=== PATIENT | female | born 1980 | race Caucasian/White ===

== ENCOUNTER 2017-04-03 23:44 | Inpatient (IN) | payer MEDICAID ==
[~2017-04-03] VITALS: Ht 157.5 cm; Wt 60.0 kg
[~2017-04-03 23:44] MED LIST: APAP/HYDROCODON1 T13 PO; LEVSIN0.125 MG PO; TOP100 PO; TOPAMAX200 MG PO
[2017-04-04 02:06] LABS: BASOPHIL % 1.9 % (0-2); PLATELET COUNT 264 x10^3mcL (130-400)
[2017-04-04 02:08] LABS: RED CELL DISTRIBUTION WIDTH 17.5 % (11.5-14.5)
[2017-04-04 02:48] LABS: CALCIUM 8.4 mg/dL (8.5-10.1); CARBON DIOXIDE 20.4 mmol/L (21-32); CHLORIDE SERUM 107 mmol/L (98-107); CREATININE SERUM 0.7 mg/dL (0.6-1.0); GFR1 > 60 mL/min; GLUCOSE SERUM 100 mg/dL (74-106); POTASSIUM SERUM 3.2 mmol/L (3.5-5.1); SODIUM SERUM 136 mmol/L (136-145)
[2017-04-04 02:52] LABS: ALKALINE PHOSPHATASE 58 U/L (46-116); ALT/SGPT 15 U/L (14-59); AST/SGOT 13 U/L (15-37); BILIRUBIN TOTAL 0.2 mg/dL (0.20-1.00); LIPASE 401 IU/L (73-393); TOTAL PROTEIN, SERUM 7.8 g/dL (6.4-8.2)
[2017-04-04] MEDS ORDERED: NATURAL IRON65 MG PO (03:59)
[2017-04-04 04:55] VITALS: BP 92/50
[2017-04-04 05:10] LABS: microscopic required? YES; urine erythrocyte TRACE (NEGATIVE)
[2017-04-04 05:32] VITALS: BP 89/53
[2017-04-04 05:40] LABS: AMPHETAMINE QUAL UR NONE DETECTED (NEG <=1000)
[2017-04-04 06:35] LABS: T3 TOTAL 1.08 ng/mL
[2017-04-04 06:56] LABS: FREE T4 1.22 ng/dL (0.76-1.46); FREE THYROXINE INDEX 2.9 ug/dL (1.4-4.5); T4(THYROXINE) 9.1 ug/dL (4.7-13.3)
[2017-04-04 07:33] LABS: MAGNESIUM 2.4 mg/dL (1.8-2.4)
[2017-04-04 07:43] LABS: PHOSPHOROUS 4.2 mg/dL (2.5-4.9)
[2017-04-04 11:28] VITALS: BP 104/59
[2017-04-04 14:55] VITALS: BP 95/61
[2017-04-04 21:02] VITALS: BP 90/54
[2017-04-05 05:17] VITALS: BP 105/52
[2017-04-05 05:36] LABS: BASOPHIL % 0.5 % (0-2); PLATELET COUNT 191 x10^3mcL (130-400)
[2017-04-05 05:47] LABS: CALCIUM 7.8 mg/dL (8.5-10.1); CARBON DIOXIDE 18.9 mmol/L (21-32); CHLORIDE SERUM 112 mmol/L (98-107); CREATININE SERUM 0.6 mg/dL (0.6-1.0); GFR1 > 60 mL/min; GLUCOSE SERUM 60 mg/dL (74-106); POTASSIUM SERUM 3.4 mmol/L (3.5-5.1); SODIUM SERUM 141 mmol/L (136-145)
[2017-04-05 06:47] LABS: RED CELL DISTRIBUTION WIDTH 18.5 % (11.5-14.5)
[2017-04-05 09:42] VITALS: BP 102/55
[2017-04-05 13:09] VITALS: BP 98/53
[2017-04-05 16:54] VITALS: BP 100/56
[2017-04-05 19:35] VITALS: BP 97/50
[2017-04-06 06:07] LABS: BASOPHIL % 0.4 % (0-2); PLATELET COUNT 216 x10^3mcL (130-400)
[2017-04-06 06:13] LABS: RED CELL DISTRIBUTION WIDTH 18.8 % (11.5-14.5)
[2017-04-06 06:21] LABS: CALCIUM 7.6 mg/dL (8.5-10.1); CARBON DIOXIDE 14.5 mmol/L (21-32); CHLORIDE SERUM 105 mmol/L (98-107); CREATININE SERUM 0.7 mg/dL (0.6-1.0); GFR1 > 60 mL/min; POTASSIUM SERUM 3.8 mmol/L (3.5-5.1); SODIUM SERUM 134 mmol/L (136-145)
[2017-04-06 06:57] LABS: GLUCOSE SERUM 45 mg/dL (74-106)
[2017-04-06 09:27] VITALS: BP 102/53
[2017-04-06 17:30] VITALS: BP 94/60
[2017-04-06 22:03] VITALS: BP 107/61
[2017-04-07 06:06] VITALS: BP 100/63
[2017-04-07 06:15] LABS: CALCIUM 6.7 mg/dL (8.5-10.1); CHLORIDE SERUM 111 mmol/L (98-107); CREATININE SERUM 0.6 mg/dL (0.6-1.0); GFR1 > 60 mL/min; GLUCOSE SERUM 334 mg/dL (74-106); MAGNESIUM 1.8 mg/dL (1.8-2.4); PHOSPHOROUS 2.1 mg/dL (2.5-4.9); POTASSIUM SERUM 3.1 mmol/L (3.5-5.1); SODIUM SERUM 141 mmol/L (136-145)
[2017-04-07 07:11] LABS: BASOPHIL % 0.7 % (0-2); PLATELET COUNT 163 x10^3mcL (130-400)
[2017-04-07 07:12] LABS: RED CELL DISTRIBUTION WIDTH 19.3 % (11.5-14.5)
[2017-04-07 09:38] VITALS: BP 100/62
[2017-04-07] MEDS ORDERED: LEVSIN0.125 M1 (13:51)
[2017-04-07] MEDS ORDERED: TOPAMAX100 MG PO (16:26)
[2017-04-07 17:21] VITALS: BP 112/51
== END 2017-04-07 18:45 | disposition home or self-care (01) ==
LOC: ED 23:44 → MU 04-04 03:54 → DU 04-04 03:54 → MU 04-04 03:54 → DU 04-04 04:31 → MU 04-05 07:57
PROVIDERS: Emergency Medicine; Family Medicine; ADMIT Family Medicine
DX: K83.4 Spasm of sphincter of Oddi (principal); N17.0 Acute kidney failure with tubular necrosis; E87.6 Hypokalemia; E83.51 Hypocalcemia; G40.909 Epilepsy, unspecified, not intractable, without status epilepticus; D64.9 Anemia, unspecified; Z68.24 Body mass index [BMI] 24.0-24.9, adult
CPT/HCPCS: 82962; 83880; 84439; J0500; J1170; J1885; J2270; J2405; J3480; J3490; J7030; J7042; Q0092

== ENCOUNTER 2017-08-05 12:47 | Emergency (ER) | payer MEDICAID ==
[~2017-08-05] VITALS: Ht 157.5 cm; Wt 61.2 kg
[~2017-08-05 12:47] MED LIST changes: +LEVSIN0.125 M1; +NATURAL IRON65 MG PO; +TOPAMAX100 MG PO
[2017-08-05 12:54] VITALS: Ht 157.5 cm; Wt 61.2 kg
[2017-08-05 17:02] LABS: BASOPHIL % 0.4 % (0-2); PLATELET COUNT 253 x10^3mcL (130-400); RED CELL DISTRIBUTION WIDTH 12.3 % (11.5-14.5)
[2017-08-05 17:11] LABS: CALCIUM 8.3 mg/dL (8.5-10.1); CARBON DIOXIDE 19.2 mmol/L (21-32); CHLORIDE SERUM 107 mmol/L (98-107); CREATININE SERUM 0.5 mg/dL (0.6-1.0); GFR1 > 60 mL/min; GLUCOSE SERUM 87 mg/dL (74-106); POTASSIUM SERUM 3.2 mmol/L (3.5-5.1); SODIUM SERUM 140 mmol/L (136-145)
[2017-08-05 17:16] LABS: ALBUMIN 3.7 g/dL (3.4-5.0); ALKALINE PHOSPHATASE 53 U/L (46-116); ALT/SGPT 22 U/L (14-59); AST/SGOT 11 U/L (15-37); BILIRUBIN TOTAL 0.3 mg/dL (0.20-1.00); LIPASE 217 IU/L (73-393); TOTAL PROTEIN, SERUM 7.2 g/dL (6.4-8.2)
[2017-08-05 19:05] VITALS: BP 102/62
== END 2017-08-05 19:05 | disposition home or self-care (01) ==
LOC: ED 12:47
PROVIDERS: Emergency Medicine
DX: R10.13 Epigastric pain (principal); R11.0 Nausea; Z88.1 Allergy status to other antibiotic agents; Z88.8 Allergy status to other drugs, medicaments and biological substances
CPT/HCPCS: J1885; J2405; J3010; J7030

== ENCOUNTER 2018-06-10 10:25 | Emergency (ER) | payer MEDICAID ==
[~2018-06-10] VITALS: Ht 157.5 cm; Wt 64.4 kg
[2018-06-10 10:31] VITALS: Ht 157.5 cm; Wt 64.4 kg
[2018-06-10 12:43] LABS: CALCIUM 8.5 mg/dL (8.5-10.1); CARBON DIOXIDE 19.6 mmol/L (21-32); CHLORIDE SERUM 108 mmol/L (98-107); CREATININE SERUM 0.8 mg/dL (0.6-1.0); GFR1 > 60 mL/min; GLUCOSE SERUM 80 mg/dL (74-106); POTASSIUM SERUM 3.6 mmol/L (3.5-5.1); SODIUM SERUM 137 mmol/L (136-145)
[2018-06-10 12:48] LABS: BASOPHIL % 0.3 % (0-2); PLATELET COUNT 242 x10^3mcL (130-400); RED CELL DISTRIBUTION WIDTH 12.4 % (11.5-14.5)
[2018-06-10 12:49] LABS: ALBUMIN 3.7 g/dL (3.4-5.0); ALKALINE PHOSPHATASE 53 U/L (46-116); ALT/SGPT 15 U/L (14-59); AST/SGOT 18 U/L (15-37); BILIRUBIN TOTAL 0.3 mg/dL (0.20-1.00); LIPASE 242 IU/L (73-393); TOTAL PROTEIN, SERUM 7.8 g/dL (6.4-8.2)
[2018-06-10 14:36] VITALS: BP 94/57
== END 2018-06-10 15:53 | disposition home or self-care (01) ==
LOC: ED 10:25
PROVIDERS: Emergency Medicine
DX: K29.70 Gastritis, unspecified, without bleeding (principal); G43.909 Migraine, unspecified, not intractable, without status migrainosus; Z90.49 Acquired absence of other specified parts of digestive tract; Z88.1 Allergy status to other antibiotic agents; Z88.8 Allergy status to other drugs, medicaments and biological substances
CPT/HCPCS: J2270; J2405; J7030; Q0092